=== PATIENT | female | born 1960 | race African-American/Black ===

== ENCOUNTER → 2017-06-04 | Outpatient (CLI) | payer OTHER | END | disposition home or self-care (01) | LOC: MAMMO 08:53 | DX: Z12.31 Encounter for screening mammogram for malignant neoplasm of breast (principal) | CPT/HCPCS: 77067 ==

== ENCOUNTER → 2020-11-01 | Outpatient (CLI) | payer OTHER, MEDICAID ==
[2016-01-09 10:23] VITALS: BP 128/76
[~2020-11-01] MED LIST: ALPR2TAB2 PO; AMLO-187 PO; AMOX875T PO; BRIM5DRO2 OP; BRIN10DR OP; DOXY100C2 PO; GLIP10TA13 PO; HYDR-2765 PO; HYDR25TA PO; LISI10TA16 PO; METF500T16 PO; QUET200T4 PO; TRAM-48 PO; TRAV5DRO OP; VENTOLIN HFA18 GM INH
--- NOTE | 2020-11-01 17:07 | RAD ---
DATE: 11/01/2020 EXAM: DIGITAL SCREEN BILAT W/CAD HISTORY: Screening COMPARISON: 06/04/2017, 04/30/2016, 11/10/2013 This study was interpreted with the benefit of Computerized Aided Detection (CAD). Breast Density: SCATTERED The breast parenchyma shows scattered fibroglandular densities. Breast parenchyma level B. FINDINGS: No mass, suspicious calcification, or architectural distortion in either breast. Focal asymmetries in the upper outer left breast have been stable since 2013. IMPRESSION: No evidence of malignancy. BI-RADS CATEGORY: 2 BENIGN FINDING(S) RECOMMENDED FOLLOW-UP: 12M 12 MONTH FOLLOW-UP PQRS compliance statement: Patient information was entered into a reminder system with a target due date for the next mammogram. Mammography is a sensitive method for finding small breast cancers, but it does not detect them all and is not a substitute for careful clinical examination. A negative mammogram does not negate a clinically suspicious finding and should not result in delay in biopsying a clinically suspicious abnormality. "Our facility is accredited by the [employer] Mammography Program."
== END ==
LOC: MAMMO 14:00
PROVIDERS: ATTEND Pediatrics
DX: Z12.31 Encounter for screening mammogram for malignant neoplasm of breast (principal)
CPT/HCPCS: 77067